=== PATIENT | female | born 1980 | race Caucasian/White ===

== ENCOUNTER 2018-08-05 11:42 | Outpatient (REF) | payer BC, SELFPAY ==
[2018-08-05 20:35] LABS: HCT 42.6 % (36.0-46.0); HGB 14.2 g/dL (12.0-15.5); Mean Corp. HGB Concentration 33.3 g/dL (32.0-36.0); Mean Corpuscular Hemoglobin 32.9 pg (27.0-33.0); Mean Corpuscular Volume 98.6 fL (80-95); Mean Platelet Volume 11.8 fL (8.0-11.0); Platelet Count 135 x1000/uL (130-400); RBC 4.32 m/cumm (4.00-5.20); RBC Distribution Width 12.3 % (11.7-14.6); White Blood Cell Count 5.29 k/cumm (4.4-10.8)
[2018-08-05 20:46] LABS: Anion Gap 9.9 mmol/L (3-11); BUN 12 mg/dL (7-18); CO2 27.1 mmol/L (21.0-32.0); CREATININE 0.64 mg/dL (0.55-1.02); Calcium 9.4 mg/dL (8.5-10.1); Chloride 103 mmol/L (98-107); Glucose 92 mg/dL (70-100); Potassium 4.2 mmol/L (3.5-5.1); Sodium 140 mmol/L (136-145)
== END 2018-08-05 12:02 ==
LOC: NCHCN 11:42
PROVIDERS: PCP Physician Assistant Medical; Visit Provider Physician Assistant Medical
DX: F41.9 Anxiety disorder, unspecified (principal)
CPT/HCPCS: 80048; 85027; 84443

== ENCOUNTER 2018-09-02 08:54 | Outpatient (REF) | payer BC, SELFPAY ==
--- NOTE | 2018-09-02 08:20 | PAPFT_PTH ---
PATIENT: Bryanna Dudley LOC: [facility] U#:[id number] AGE/SX: 38/F ROOM: RE09/02/[address]: Nico Eli V : 1980 BED: DIS: 09/02/2018 SPEC #: [id number] RECD: 09/03/18 12:51 STATUS: IFTIKAHR REQ #: [id number] COMPA: 09/02/18 08:[address]: Nico Eli V [facility] Cytology RECD BY: Vanesa Arguello Tissues: 1 - CX/ENDOCX FOR PAP SMEARS Procedures: PAP THIN PREP/[facility] Screening HPV DNA PROBE Comments: [id number]
[2018-09-02 21:21] LABS: Anion Gap 9.5 mmol/L (3-11); BUN 14 mg/dL (7-18); CO2 25.5 mmol/L (21.0-32.0); CREATININE 0.71 mg/dL (0.55-1.02); Chloride 104 mmol/L (98-107); Cholesterol 155 mg/dL (50-200); Glucose 91 mg/dL (70-100); HDL Cholesterol 66 mg/dL (40-60); LDL CHOLESTEROL 76 mg/dL (<100); Potassium 4.2 mmol/L (3.5-5.1); Sodium 139 mmol/L (136-145); Triglyceride 61 mg/dL (30-150)
== END 2018-09-02 09:14 ==
LOC: NCHCN 08:54
PROVIDERS: PCP Physician Assistant Medical; Visit Provider Physician Assistant Medical
DX: Z00.00 Encounter for general adult medical examination without abnormal findings (principal); Z13.220 Encounter for screening for lipoid disorders; Z12.4 Encounter for screening for malignant neoplasm of cervix
CPT/HCPCS: 80048; 80061; 83721; 88142; 87624

== ENCOUNTER 2020-08-02 09:27 | Outpatient (REF) | payer BC, SELFPAY ==
[2020-08-02 21:03] LABS: Calculated LDL 53 mg/dL (<100); Cholesterol 157 mg/dL (<200); HDL Cholesterol 77 mg/dL (40-60); TSH (W/Ref FT4) 1.17 uIU/mL (0.36-3.74); Triglyceride 138 mg/dL (<150)
== END 2020-08-02 09:47 ==
LOC: NCHCN 09:27
PROVIDERS: PCP Nurse Practitioner Family; Visit Provider Nurse Practitioner Family
DX: Z00.00 Encounter for general adult medical examination without abnormal findings (principal); R61 Generalized hyperhidrosis
CPT/HCPCS: 80061; 84443

== ENCOUNTER 2021-05-07 10:48 | Outpatient (REF) | payer BC, SELFPAY ==
[2021-05-09 13:53] LABS: COVID-19 RT-PCR UVMMC Result Negative (Negative)
== END 2021-05-07 10:49 | disposition home or self-care (01) ==
LOC: NCHCN 10:48
PROVIDERS: PCP Nurse Practitioner Family; Visit Provider Internal Medicine
DX: Z20.822 Contact with and (suspected) exposure to COVID-19 (principal)
CPT/HCPCS: U0003

== ENCOUNTER 2023-09-24 13:25 | Outpatient (REF) | payer BC, SELFPAY ==
[2023-09-24 20:05] LABS: Anion Gap 9.5 mmol/L (3-11); BUN 14 mg/dL (7-18); CO2 26.5 mmol/L (21.0-32.0); CREATININE 0.7 mg/dL (0.55-1.02); Calcium 9.2 mg/dL (8.5-10.1); Chloride 104 mmol/L (98-107); Estimated GFR 108.62 (mL/min/1.73m2); Glucose 95 mg/dL (74-106); Potassium 4.1 mmol/L (3.5-5.1); Sodium 140 mmol/L (136-145)
[2023-09-24 20:19] LABS: Hemoglobin A1C 4.9 % (<5.7)
[2023-09-24 20:33] LABS: Calculated LDL 56 mg/dL (<100); Cholesterol 158 mg/dL (<200); HDL Cholesterol 88 mg/dL (40-60); Triglyceride 70 mg/dL (<150)
== END 2023-09-24 13:26 | disposition home or self-care (01) ==
LOC: NCHCN 13:25
PROVIDERS: PCP Nurse Practitioner Family; Visit Provider Nurse Practitioner Family
DX: Z13.1 Encounter for screening for diabetes mellitus (principal); Z13.6 Encounter for screening for cardiovascular disorders; Z13.228 Encounter for screening for other metabolic disorders
CPT/HCPCS: 80048; 80061; 83036